=== PATIENT | female | born 1990 | race Hispanic/Latino ===

== ENCOUNTER 2017-08-03 08:28 | Emergency (ER) | payer OTHER, SELFPAY ==
--- NOTE | 2017-08-03 09:11 | EDPHYS ---
Physician Documentation [facility] Name: Sheila Martinez Age: 27 yrs Sex: Female : 1990 Arrival Date: 08/03/2017 Time: 08:33 Bed 18 Private MD: ED Physician Gordon Mathews HPI: 08/03 09:07 This 27 yrs old Female presents to ER via Ambulatory with complaints of Rash. rn 09:07 The patient's rash thought to be caused by Dermatitis. The rash is located on the rn pelvis. The rash can be described as confluent, macular. Onset: The symptoms/episode began/occurred 3 week(s) ago. Severity of symptoms: At their worst the symptoms were mild in the emergency department the symptoms are unchanged. The patient has experienced similar episodes in the past. 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 - Social history:: Smoking status: Patient/guardian denies using tobacco. - Ebola Screening: : Patient negative for fever greater than or equal to 101.5 degrees Fahrenheit, and additional compatible Ebola Virus Disease symptoms Patient denies exposure to infectious person Patient denies travel to an Ebola-affected area in the 21 days before illness onset. - Family history:: not pertinent. - Hospitalizations: : No recent hospitalization is reported. ROS: 09:07 Constitutional: Negative for fever, chills, and weight loss, Abdomen/GI: Negative for rn abdominal pain, nausea, vomiting, diarrhea, and constipation, Skin: + rash to groin Exam: 09:07 Constitutional: This is a well developed, well nourished patient who is awake, alert, rn and in no acute distress. Skin: Warm, dry with normal turgor. + hyperpigmented rash to bilateral groin, few pustules at bases of hair, no abscess Vital Signs: 08:47 BP 115 / 49; Pulse 75; Resp 16; Temp 99.0(O); Pulse Ox 100% ; Weight 81.65 kg; Height 5 [facility] ft. 0 in. (152.40 cm); 08:47 Body Mass Index 35.15 (81.65 kg, 152.40 cm) [facility] MDM: 08:55 Patient medically screened. rn 09:07 Differential diagnosis: fungal infection, folliculitis. Data reviewed: vital signs, rn nurses notes, and as a result, I will discharge patient. Counseling: I had a detailed discussion with the patient and/or guardian regarding: the historical points, exam findings, and any diagnostic results supporting the discharge/admit diagnosis, the need for outpatient follow up, to return to the emergency department if symptoms worsen or persist or if there are any questions or concerns that arise at home. Special discussion: I discussed with the patient/guardian in detail that at this point there is no indication for admission to the hospital. It is understood, however, that if the symptoms persist or worsen the patient needs to return immediately for re-evaluation. Administered Medications: No medications were administered Disposition: 08/03/17 09:10 Discharged to Home. Impression: Tinea cruris, Folliculitis. - Condition is Stable. - Discharge Instructions: Jock Itch, Folliculitis. - Prescriptions for Bactrim DS 800- 160 mg Oral Tablet - take 1 tablet by ORAL route every 12 hours for 10 days; 20 tablet. Nystatin- Triamcinolone 100,000-0.1 unit/gram-% Topical Ointment - apply 1 application by TOPICAL route 2 times per day; 1 tube. - Medication Reconciliation Form, Thank You Letter, Antibiotic Education, Prescription Opioid Use form. - Follow up: Private Physician; When: As needed; Reason: Recheck today's complaints, Re-evaluation by your physician. - Problem is new. - Symptoms have improved. Signatures: Gordon Mathews MD MD rn Baxter, Heather, RN RN Corrections: (The following items were deleted from the chart) 09:22 09:10 08/03/2017 09:10 Discharged to Home. Impression: Tinea cruris; Folliculitis. hb Condition is Stable. Forms are Medication Reconciliation Form, Thank You Letter, Antibiotic Education, Prescription Opioid Use. Follow up: Private Physician; When: As needed; Reason: Recheck today's complaints, Re-evaluation by your physician. Problem is new. Symptoms have improved. rn
--- NOTE | 2017-08-03 09:11 | ER ---
Nurse's Notes [facility] Name: Sheila Martinez Age: 27 yrs Sex: Female : 1990 Arrival Date: 08/03/2017 Time: 08:33 Bed 18 Private MD: Diagnosis: Tinea cruris;Folliculitis Presentation: 08/03 08:52 Presenting complaint: Patient states: Pain, itching, burning, and abscess on groin x 2 hb days. Denies abdominal pain/discharge/ fever/recent sexual activity. Transition of care: patient was not received from another setting of care. Onset of symptoms was August 02, 2017. Risk Assessment: Do you want to hurt yourself or someone else? Patient reports no desire to harm self or others. Initial Sepsis Screen: Does the patient meet any 2 criteria? No. Patient's initial sepsis screen is negative. Does the patient have a suspected source of infection? No. Patient's initial sepsis screen is negative. Care prior to arrival: None. 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 - Social history:: Smoking status: Patient/guardian denies using tobacco. - Ebola Screening: : Patient negative for fever greater than or equal to 101.5 degrees Fahrenheit, and additional compatible Ebola Virus Disease symptoms Patient denies exposure to infectious person Patient denies travel to an Ebola-affected area in the 21 days before illness onset. - Family history:: not pertinent. - Hospitalizations: : No recent hospitalization is reported. Screenin:55 Abuse screen: Denies threats or abuse. Denies injuries from another. Nutritional hb screening: No deficits noted. Tuberculosis screening: No symptoms or risk factors identified. Fall Risk None identified. Assessment: 08:50 General: Appears in no apparent distress. Behavior is calm, cooperative. Pain: Pain hb currently is 1 out of 10 on a pain scale. Neuro: Level of Consciousness is awake, alert, obeys commands, Oriented to person, place, time, situation. Cardiovascular: Capillary refill < 3 seconds Patient's skin is warm and dry. Respiratory: Airway is patent Trachea midline Respiratory effort is even, unlabored, Respiratory pattern is regular, symmetrical. Derm: redness to groin noted. Vital Signs: 08:47 BP 115 / 49; Pulse 75; Resp 16; Temp 99.0(O); Pulse Ox 100% ; Weight 81.65 kg; Height 5 mh5 ft. 0 in. (152.40 cm); 08:47 Body Mass Index 35.15 (81.65 kg, 152.40 cm) 5 ED Course: 08:33 Patient arrived in ED. as 08:49 Patient has correct armband on for positive identification. Placed in gown. Bed in low mh5 position. Call light in reach. Warm blanket given. Pulse ox on. NIBP on. 08:52 Vilma Givens RN is Primary Nurse. hb 08:54 Triage completed. hb 08:55 Gordon Mathews MD is Attending Physician. rn 09:17 Arm band placed on right wrist. jl7 09:21 No provider procedures requiring assistance completed. Patient did not have IV access hb during this emergency room visit. Administered Medications: No medications were administered Outcome: 09:10 Discharge ordered by . rn 09:21 Discharged to home ambulatory. hb 09:21 Condition: stable 09:21 Discharge instructions given to patient, Instructed on discharge instructions, follow up and referral plans. medication usage, Demonstrated understanding of instructions, follow-up care, medications, Prescriptions given X 2. 09:22 Patient left the ED. hb Signatures: Tona Shaw Roman, MD MD rn Baxter, Heather, RN Christine Anton [facility] Javier López RN RN jl7
[2017-08-03 09:34] VITALS: BP 115/49; TEMP 99; O2SAT 100
== END 2017-08-03 09:22 | disposition home or self-care (01) ==
LOC: ER 08:28
DX: B35.6 Tinea cruris (principal); L73.9 Follicular disorder, unspecified
CPT/HCPCS: 99283

== ENCOUNTER 2018-08-13 21:26 | Emergency (ER) | payer SELFPAY ==
--- NOTE | 2018-08-13 22:02 | ER ---
Nurse's Notes [facility] Name: Sheila Martinez Age: 28 yrs Sex: Female : 1990 Arrival Date: 08/13/2018 Time: 21:29 Bed 25 Private MD: Diagnosis: Laceration without foreign body of right index finger without damage to nail Presentation: 08/13 21:43 Presenting complaint: Patient states: I cut my finger at work. Happens less than 30 ca1 minutes ago. It has been bleeding when I cut it. Transition of care: patient was not received from another setting of care. Onset of symptoms was August 13, 2018. Risk Assessment: Do you want to hurt yourself or someone else? Patient reports no desire to harm self or others. Initial Sepsis Screen: Does the patient meet any 2 criteria? No. Patient's initial sepsis screen is negative. Does the patient have a suspected source of infection? No. Patient's initial sepsis screen is negative. Care prior to arrival: None. 21:43 Method Of Arrival: Ambulatory ca1 21:43 Acuity: GISELLE 4 ca1 Triage Assessment: 21:46 General: Appears in no apparent distress. comfortable, Behavior is calm, cooperative, ca1 appropriate for age. Pain: Complains of pain in dorsal aspect of distal phalanx of left index finger Pain currently is 9 out of 10 on a pain scale. Pain began 30 min ago. Musculoskeletal: Circulation, motion, and sensation intact. Capillary refill < 3 seconds, Range of motion: intact in all extremities. Injury Description: Avulsion sustained to dorsal aspect of distal phalanx of left index finger is complete was sustained less than 30 minutes ago. 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 - Social history:: Smoking status: Patient uses tobacco products, denies chronic smoking, but will smoke occasionally. - Ebola Screening: : Patient negative for fever greater than or equal to 101.5 degrees Fahrenheit, and additional compatible Ebola Virus Disease symptoms Patient denies exposure to infectious person Patient denies travel to an Ebola-affected area in the 21 days before illness onset No symptoms or risks identified at this time. Screenin:19 Abuse screen: Denies threats or abuse. Denies injuries from another. Nutritional rv screening: No deficits noted. Tuberculosis screening: No symptoms or risk factors identified. Fall Risk None identified. Assessment: 22:18 General: Appears in no apparent distress. comfortable, Behavior is calm, cooperative. rv Pain: Complains of pain in dorsal aspect of distal phalanx of left index finger. Neuro: Level of Consciousness is awake, alert, obeys commands, Oriented to person, place, time, situation. Cardiovascular: Patient's skin is warm and dry. Respiratory: Airway is patent. GI: No signs and/or symptoms were reported involving the gastrointestinal system. : No signs and/or symptoms were reported regarding the genitourinary system. EENT: No signs and/or symptoms were reported regarding the EENT system. Derm: Wound noted dorsal aspect of distal phalanx of left index finger. Musculoskeletal: No signs and/or symptoms reported regarding the musculoskeletal system. Vital Signs: 21:46 BP 136 / 89; Pulse 72; Resp 16 S; Temp 98.3(O); Pulse Ox 100% on R/A; Weight 79.38 kg; ca1 Height 4 ft. 9 in. (144.78 cm); Pain 9/10; 21:46 Body Mass Index 37.87 (79.38 kg, 144.78 cm) ca1 ED Course: 21:29 Patient arrived in ED. es 21:43 Mayra Ortega, NEEL is Primary Nurse. ca1 21:45 Triage completed. ca1 21:46 Arm band placed on right wrist. ca1 21:56 Rusty Urrutia NP is PHCP. pm1 21:56 Santana Faust MD is Attending Physician. pm1 22:19 Patient has correct armband on for positive identification. Bed in low position. Call rv light in reach. Side rails up X 1. Pulse ox on. NIBP on. 22:20 No provider procedures requiring assistance completed. Patient did not have IV access rv during this emergency room visit. Administered Medications: 22:08 Drug: [place] 5 mg-325 mg 1 tabs Route: PO; rv 22:21 Follow up: Response: Medication administered at discharge. 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 Exp: rv 06/03/2020. Lot #: [id number]. } Route: IM; Site: left deltoid; 22:21 Follow up: Response: Medication administered at discharge. rv Outcome: 22:01 Discharge ordered by . pm1 22:20 Discharged to home ambulatory. rv 22:20 Condition: good 22:20 Discharge instructions given to patient, Instructed on discharge instructions, follow up and referral plans. medication usage, wound care, Demonstrated understanding of instructions, follow-up care, medications, Prescriptions given X 1. 22:20 Patient left the ED. rv Signatures: Kesha Hoyos Patrick, NP DEER FARM WORKER pm1 Ian Malik, RN RN rv Mayra Ortega RN RN ca1
--- NOTE | 2018-08-13 22:02 | EDPHYS ---
Physician Documentation [facility] Name: Sheila Martinez Age: 28 yrs Sex: Female : 1990 Arrival Date: 08/13/2018 Time: 21:29 Bed 25 Private MD: ED Physician Santana Faust HPI: 08/13 22:00 This 28 yrs old Female presents to ER via Ambulatory with complaints of Finger pm1 Injury. 22:00 The patient or guardian reports a laceration. The complaints affect the palmar aspect pm1 of distal phalanx of left index finger. Context: The problem was sustained at work. Onset: The symptoms/episode began/occurred today. Modifying factors: The symptoms are alleviated by pressure to area, the symptoms are aggravated by nothing. Associated signs and symptoms: Pertinent negatives: cyanosis distally, decreased sensation distally, numbness distally, tingling distally. Severity of symptoms: in the emergency department the symptoms have improved. The patient has not recently seen a physician. 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 - Social history:: Smoking status: Patient uses tobacco products, denies chronic smoking, but will smoke occasionally. - Ebola Screening: : Patient negative for fever greater than or equal to 101.5 degrees Fahrenheit, and additional compatible Ebola Virus Disease symptoms Patient denies exposure to infectious person Patient denies travel to an Ebola-affected area in the 21 days before illness onset No symptoms or risks identified at this time. ROS: 22:00 Constitutional: Negative for fever, chills, and weight loss, Eyes: Negative for injury, pm1 pain, redness, and discharge, ENT: Negative for injury, pain, and discharge, Neck: Negative for injury, pain, and swelling, Cardiovascular: Negative for chest pain, palpitations, and edema, Respiratory: Negative for shortness of breath, cough, wheezing, and pleuritic chest pain, Abdomen/GI: Negative for abdominal pain, nausea, vomiting, diarrhea, and constipation, Back: Negative for injury and pain, MS/Extremity: Negative for injury and deformity. 22:00 Neuro: Negative for headache, weakness, numbness, tingling, and seizure. 22:00 Skin: Positive for laceration(s), of the palmar aspect of distal phalanx of left index finger. Exam: 22:00 Constitutional: This is a well developed, well nourished patient who is awake, alert, pm1 and in no acute distress. Head/Face: Normocephalic, atraumatic. Chest/axilla: Normal chest wall appearance and motion. Nontender with no deformity. No lesions are appreciated. Cardiovascular: Regular rate and rhythm with a normal S1 and S2. No gallops, murmurs, or rubs. Normal PMI, no JVD. No pulse deficits. Respiratory: Lungs have equal breath sounds bilaterally, clear to auscultation and percussion. No rales, rhonchi or wheezes noted. No increased work of breathing, no retractions or nasal flaring. Abdomen/GI: Soft, non-tender, with normal bowel sounds. No distension or tympany. No guarding or rebound. No evidence of tenderness throughout. Back: No spinal tenderness. No costovertebral tenderness. Full range of motion. 22:00 Skin: Appearance: normal except for affected area, injury, laceration(s), that can be described as clean, no foreign body, without bleeding, small avulsion to the tip of left 2nd finger. Vital Signs: 21:46 BP 136 / 89; Pulse 72; Resp 16 S; Temp 98.3(O); Pulse Ox 100% on R/A; Weight 79.38 kg; ca1 Height 4 ft. 9 in. (144.78 cm); Pain 9/10; 21:46 Body Mass Index 37.87 (79.38 kg, 144.78 cm) ca1 MDM: 21:56 Patient medically screened. pm1 21:59 Data reviewed: vital signs. Data interpreted: Pulse oximetry: on room air is 100 %. pm1 Interpretation: normal. Counseling: I had a detailed discussion with the patient and/or guardian regarding: the historical points, exam findings, and any diagnostic results supporting the discharge/admit diagnosis, the need for outpatient follow up, to return to the emergency department if symptoms worsen or persist or if there are any questions or concerns that arise at home. 08/13 21:59 Order name: Wound Care; Complete Time: 22:06 pm1 Administered Medications: 22:08 Drug: [place] 5 mg-325 mg 1 tabs Route: PO; rv 22:21 Follow up: Response: Medication administered at discharge. rv 22:08 Drug: Tetanus-Diphtheria Toxoid Adult 0.5 ml {Resin Remover: Parents R People. Exp: rv 06/03/2020. Lot #: [id number]. } Route: IM; Site: left deltoid; 22:21 Follow up: Response: Medication administered at discharge. rv Disposition: 08/14 01:25 Co-signature as Attending Physician, Santana Faust MD. pkl Disposition: 08/13/18 22:01 Discharged to Home. Impression: Laceration without foreign body of right index finger without damage to nail. - Condition is Stable. - Discharge Instructions: Laceration Care, Adult. - Prescriptions for Keflex 500 mg Oral Capsule - take 1 capsule by ORAL route every 12 hours for 10 days; 20 capsule. - Medication Reconciliation Form, Thank You Letter, Antibiotic Education, Prescription Opioid Use, Work release form form. - Follow up: Emergency Department; When: As needed; Reason: Worsening of condition. Follow up: Private Physician; When: 2 - 3 days; Reason: Recheck today's complaints, Continuance of care, Re-evaluation by your physician. - Problem is new. - Symptoms have improved. Signatures: Santana Faust MD MD pkl Rusty Urrutia, [employer] PREPARED FOODS ASSOCIATE pm1 Ian Malik RN RN Mayra Ortega RN RN ca1 Corrections: (The following items were deleted from the chart) 08/13 22:20 22:01 08/13/2018 22:01 Discharged to Home. Impression: Laceration without foreign body rv of right index finger without damage to nail. Condition is Stable. Forms are Medication Reconciliation Form, Thank You Letter, Antibiotic Education, Prescription Opioid Use. Follow up: Emergency Department; When: As needed; Reason: Worsening of condition. Follow up: Private Physician; When: 2 - 3 days; Reason: Recheck today's complaints, Continuance of care, Re-evaluation by your physician. Problem is new. Symptoms have improved. pm1
[2018-08-13] MEDS ORDERED: HYDROCODONE/APAP 5/325 MG TAB ONE (22:19)
[2018-08-13] MEDS ORDERED: TETANUS & DIPHTHERIA TOX,ADULT 0.5 ML VIAL ONE (22:19)
[2018-08-13 22:26] VITALS: BP 136/89; TEMP 98.3; O2SAT 100
== END 2018-08-13 22:20 | disposition home or self-care (01) ==
LOC: ER 21:26
DX: S61.211A Laceration without foreign body of left index finger without damage to nail, initial encounter (principal); W26.0XXA Contact with knife, initial encounter; Y93.89 Activity, other specified; Y92.89 Other specified places as the place of occurrence of the external cause; Y99.8 Other external cause status; Z23 Encounter for immunization
CPT/HCPCS: 90471; 90714; 99283

== ENCOUNTER 2020-07-09 08:41 | Emergency (ER) | payer SELFPAY ==
[2020-07-09 09:29] LABS: Urine Blood 3+ (Negative); Urine Glucose Negative (Negative); Urine Protein 1+ (Negative); Urine pH 6.5 (5.0-7.0)
[2020-07-09 09:34] LABS: Absolute Lymphocytes (CBC) 2.3 K/uL (0.7-4.9); Basophils % 0.5 % (0-1.3); Hematocrit 36.7 % (36.0-45.0); Lymphocytes % 16.7 % (15.3-44.8); MPV 7.8 fL (7.6-11.3); RBC Red Blood Cell Count 4.27 M/uL (3.86-4.86)
[2020-07-09] MEDS ORDERED: FENTANYL CITR 100 MCG/2 ML ONE (09:54)
[2020-07-09] MEDS ORDERED: ONDANSETRON 4 MG/2 ML VIAL ONE (09:54)
[2020-07-09] MEDS ORDERED: KETOROLAC 30 MG/ML INJ ONE (09:54)
[2020-07-09 10:02] LABS: BUN Blood Urea Nitrogen 12 mg/dL (7-18); Bicarbonate 26 mmol/L (21-32); Glucose Level 110 mg/dL (74-106); Potassium 3.1 mmol/L (3.5-5.1); Sodium Level 141 mmol/L (136-145); Uric Acid 3.8 mg/dL (2.6-6.0)
--- NOTE | 2020-07-09 10:21 | RAD REPORT ---
EXAM DESCRIPTION: RAD - Wrist Right 3 View - 07/09/2020 9:54 am CLINICAL HISTORY: Right wrist swelling FINDINGS: No fracture or dislocation is seen. No bone or joint abnormality noted
--- NOTE | 2020-07-09 11:13 | ER ---
Nurse's Notes [facility] Name: Sheila Martinez Age: 30 yrs Sex: Female : 1990 Arrival Date: 07/09/2020 Time: 08:45 Bed 13 Private MD: Diagnosis: Pain in joint;Urinary tract infection, site not specified Presentation: 07/09 08:56 Chief complaint: Patient states: Swelling and pain to bilateral hands/ wrist and ankles ss that began 2 weeks ago. Pt reports that she was seen at [facility] where they prescribed her steroids which do not seem to be helping. Coronavirus screen: Client denies travel out of the [place] in the last 14 days. Ebola Screen: Patient denies exposure to infectious person. Patient denies travel to an Ebola-affected area in the 21 days before illness onset. Initial Sepsis Screen: Does the patient meet any 2 criteria? No. Patient's initial sepsis screen is negative. Does the patient have a suspected source of infection? No. Patient's initial sepsis screen is negative. Risk Assessment: Do you want to hurt yourself or someone else? Patient reports no desire to harm self or others. Onset of symptoms was June 25, 2020. 08:56 Method Of Arrival: Ambulatory ss 08:56 Acuity: GISELLE 3 ss Triage Assessment: 07:40 General: Appears in no apparent distress. Pain: Complains of pain in left leg. tr6 09:24 General: Behavior is. 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 - Social history:: Smoking status: Patient denies any tobacco usage or history of. Screenin:06 Abuse screen: Denies threats or abuse. Nutritional screening: No deficits noted. tw2 Tuberculosis screening: No symptoms or risk factors identified. Fall Risk None identified. Assessment: 09:45 Reassessment: bedside xray. tr6 10:24 Reassessment: Patient appears in no apparent distress at this time. No changes from tw2 previously documented assessment. Patient and/or family updated on plan of care and expected duration. Pain level reassessed. Patient is alert, oriented x 3, equal unlabored respirations, skin warm/dry/pink. pt on personal cell phone at this time, pt is crying, asked if she needed anything pt shook head no. 11:28 Reassessment: Patient appears in no apparent distress at this time. No changes from tw2 previously documented assessment. Patient and/or family updated on plan of care and expected duration. Pain level reassessed. Patient is alert, oriented x 3, equal unlabored respirations, skin warm/dry/pink. Vital Signs: 08:56 BP 129 / 83; Pulse 83; Resp 17; Temp 98.3(TE); Pulse Ox 99% on R/A; Weight 81.65 kg; ss Height 5 ft. 0 in. (152.40 cm); Pain 10/10; 09:45 BP 128 / 86; Pulse 82; Resp 18; Temp 98.3; Pulse Ox 100% ; tr6 10:25 BP 131 / 76; Pulse 89; Resp 17; Pulse Ox 100% on R/A; tw2 11:28 BP 118 / 86; Pulse 81; Resp 17; Pulse Ox 99% on R/A; tw2 08:56 Body Mass Index 35.15 (81.65 kg, 152.40 cm) ED Course: 08:45 Patient arrived in ED. mr 08:58 Triage completed. 08:58 Arm band placed on right wrist. 09:00 Harman Rosales PA is PHCP. [facility] 09:00 Mick Benito MD is Attending Physician. [facility] 09:06 Radhika Vasques, RN is Primary Nurse. tw2 09:07 Bed in low position. Pulse ox on. NIBP on. tw2 09:23 Inserted saline lock: 20 gauge in right antecubital area, using aseptic technique. tr6 ,using aseptic technique. by Abby SHAIKH Blood collected. 09:24 No provider procedures requiring assistance completed. tr6 09:30 Uric Acid Sent. tr6 09:30 CRP Sent. tr6 09:30 ESR Sent. tr6 09:30 BMP Sent. tr6 09:30 CBC with Diff Sent. tr6 09:54 Wrist Right 3 View XRAY In Process Unspecified. EDMS 09:54 Wrist Left (3 View) XRAY In Process Unspecified. EDMS 11:28 IV discontinued, intact, bleeding controlled, No redness/swelling at site. Pressure tr6 dressing applied. Administered Medications: 09: Drug: Ketorolac 30 mg Route: IVP; Site: right antecubital; tr6 11: Follow up: Response: No adverse reaction tw2 : Follow up: Response: No adverse reaction; Pain is decreased tr6 09:43 Drug: fentaNYL (PF) 50 mcg Route: IVP; Site: right antecubital; tr6 : Follow up: Response: No adverse reaction; Pain is decreased; RASS: Alert and Calm (0) tw2 : Follow up: Response: No adverse reaction; Pain is decreased tr6 09:43 Drug: Zofran (Ondansetron) 4 mg Route: IVP; Site: right antecubital; tr6 : Follow up: Response: No adverse reaction tw2 Outcome: 11:13 Discharge ordered by . [facility] 11:28 Discharged to home ambulatory, with friend, friend waiting in car to drive pt home tr6 11: Condition: good 11: Discharge instructions given to patient. 11:40 Patient left the ED. tw2 Addendum: 07/12/2020 07:27 Addendum: Culture Results: Positive urine culture. No further action required. Bacteria e b sensitive to prescribed antibiotic. Signatures: Dispatcher [employer] EDMS Harman Rosales PA PA jmm Rivera, Mary mr GamezAna, RN RN Radhika Payne RN RN tw2 Taylor Monroe Tiffany, RN RN tr6 Corrections: (The following items were deleted from the chart) 07/09 10: 10:29 Reassessment: discharge instructions reviewed with pts mother. pt wheeled out by tr6 mother. tr6 10:30 Discharged to home via wheelchair, with family, tr6 tr6 : 10:30 Condition: good tr6 tr6 10:30 Discharge instructions given to patient, family, mother tr6 tr6
--- NOTE | 2020-07-09 11:13 | EDPHYS ---
Physician Documentation [facility] Name: Sheila Martinez Age: 30 yrs Sex: Female : 1990 Arrival Date: 07/09/2020 Time: 08:45 Bed 13 Private MD: ED Physician Mick Benito HPI: 07/09 09:17 This 30 yrs old Female presents to ER via Ambulatory with complaints of Ankle jmm Swelling, Hand Swelling. 09:17 This is a 30 year old female with no known chronic medical conditions that presents to [facility] the ED with complaints of wrist, ankle pain beginning approx 2 weeks ago. Patient was seen at [place] ED, steroids have not helped. Denies trauma to the areas. . Onset: The symptoms/episode began/occurred gradually, 2 week(s) ago. The patient has not experienced similar symptoms in the past. 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 - Social history:: Smoking status: Patient denies any tobacco usage or history of. ROS: 09:17 Constitutional: Negative for fever, chills, and weight loss, Cardiovascular: Negative jmm for chest pain, palpitations, and edema, Respiratory: Negative for shortness of breath, cough, wheezing, and pleuritic chest pain. 09:17 Hematologic/Lymphatic: Positive for joint pain. 09:17 All other systems are negative. Exam: 09:17 Constitutional: This is a well developed, well nourished patient who is awake, alert, jmm and in no acute distress. Head/Face: atraumatic. Eyes: EOMI, no conjunctival erythema appreciated ENT: Moist Mucus Membranes Neck: Trachea midline, Supple Chest/axilla: Normal chest wall appearance and motion. Cardiovascular: Regular rate and rhythm. No edema appreciated Respiratory: Normal respirations, no respiratory distress appreciated Abdomen/GI: Non distended, soft Back: Normal ROM Skin: General appearance color normal 09:17 Neuro: Awake and alert, normal gait Psych: Behavior is normal, Mood is normal, Patient is cooperative and pleasant 09:17 Musculoskeletal/extremity: swollen joints noted to the carpals bilaterally, pain is mainly referred to the base of the 1st phalanx, no obvious signs of trauma. Painful rom, NVI. Vital Signs: 08:56 BP 129 / 83; Pulse 83; Resp 17; Temp 98.3(TE); Pulse Ox 99% on R/A; Weight 81.65 kg; ss Height 5 ft. 0 in. (152.40 cm); Pain 10/10; 09:45 BP 128 / 86; Pulse 82; Resp 18; Temp 98.3; Pulse Ox 100% ; tr6 10:25 BP 131 / 76; Pulse 89; Resp 17; Pulse Ox 100% on R/A; tw2 11:28 BP 118 / 86; Pulse 81; Resp 17; Pulse Ox 99% on R/A; tw2 08:56 Body Mass Index 35.15 (81.65 kg, 152.40 cm) ss MDM: 09:04 Patient medically screened. [facility] 11:11 Data reviewed: vital signs, nurses notes. Counseling: I had a detailed discussion with andrez the patient and/or guardian regarding: the historical points, exam findings, and any diagnostic results supporting the discharge/admit diagnosis, lab results, radiology results, the need for outpatient follow up, to return to the emergency department if symptoms worsen or persist or if there are any questions or concerns that arise at home. ED course: Most likely autoimmune. Advised to follow up with pcp. Patient will be prescribed oral abx and otherwise given strict return precautions. Patient understood and agrees with the plan of care. . 07/09 09:09 Order name: CBC with Diff; Complete Time: 09:42 [facility] 07/09 09:10 Order name: BMP; Complete Time: 10: [facility] 07/09 09:10 Order name: ESR; Complete Time: 10: [facility] 07/09 09:10 Order name: CRP; Complete Time: 10: [facility] 07/09 09:10 Order name: Uric Acid; Complete Time: : [facility] 07/09 09:28 Order name: Urine Culture [facility] 07/09 09:09 Order name: Wrist Right 3 View XRAY; Complete Time: 10: [facility] 07/09 09:09 Order name: Wrist Left (3 View) XRAY; Complete Time: : [facility] 07/09 09:09 Order name: Saline Lock; Complete Time: 09:19 [facility] 07/09 09:29 Order name: Urine Dipstick-Ancillary; Complete Time: 09:29 [facility] 07/09 09:30 Order name: Urine --Ancillary (enter results); Complete Time: 10:27 07/09 09:10 Order name: Urine Dipstick-Ancillary (obtain specimen); Complete Time: 09:30 [facility] 07/09 09:10 Order name: Urine Test (obtain specimen); Complete Time: 09:30 [facility] 07/09 11:40 Order name: Sling; Complete Time: 11:40 tw2 Administered Medications: 09:43 Drug: Ketorolac 30 mg Route: IVP; Site: right antecubital; tr6 11:29 Follow up: Response: No adverse reaction tw2 11:29 Follow up: Response: No adverse reaction; Pain is decreased tr6 09:43 Drug: fentaNYL (PF) 50 mcg Route: IVP; Site: right antecubital; tr6 11:29 Follow up: Response: No adverse reaction; Pain is decreased; RASS: Alert and Calm (0) tw2 11:29 Follow up: Response: No adverse reaction; Pain is decreased tr6 09:43 Drug: Zofran (Ondansetron) 4 mg Route: IVP; Site: right antecubital; tr6 11:29 Follow up: Response: No adverse reaction tw2 Disposition: 11:11 Chart complete. [facility] 12:05 Co-signature as Attending Physician, Mick Benito MD I agree with the assessment and kdr plan of care. Disposition: 07/09/20 11:13 Discharged to Home. Impression: Pain in joint, Urinary tract infection, site not specified. - Condition is Stable. - Discharge Instructions: Joint Pain. - Prescriptions for Ultram 50 mg Oral Tablet - take 1 tablet by ORAL route every 6 hours As needed; 12 tablet. Bactrim DS 800- 160 mg Oral Tablet - take 1 tablet by ORAL route every 12 hours for 10 days; 20 tablet. - Medication Reconciliation Form, Thank You Letter, Antibiotic Education, Prescription Opioid Use, Work release form form. - Follow up: Private Physician; When: 2 - 3 days; Reason: Recheck today's complaints, Continuance of care, Re-evaluation by your physician. Signatures: Dispatcher [employer] Mick Conn MD MD kdr Harman Rosales PA PA [facility] Ana Gamez, RN RN ss Radhika Vasques RN RN tw2 Stormy Stinson, NEEL RN tr6 Corrections: (The following items were deleted from the chart) 11:14 11:13 07/09/2020 11:13 Discharged to Home. Impression: Pain in joint. Condition is jmm Stable. Forms are Work release form, Medication Reconciliation Form, Thank You Letter, Antibiotic Education, Prescription Opioid Use. Follow up: Private Physician; When: 2 - 3 days; Reason: Recheck today's complaints, Continuance of care, Re-evaluation by your physician. [facility] 11:40 11:14 07/09/2020 11:13 Discharged to Home. Impression: Pain in joint; Urinary tract tw2 infection, site not specified. Condition is Stable. Discharge Instructions: Joint Pain. Prescriptions for Ultram 50 mg Oral Tablet - take 1 tablet by ORAL route every 6 hours As needed; 12 tablet, Bactrim DS 800-160 mg Oral Tablet - take 1 tablet by ORAL route every 12 hours for 10 days; 20 tablet. and Forms are Work release form, Medication Reconciliation Form, Thank You Letter, Antibiotic Education, Prescription Opioid Use. Follow up: Private Physician; When: 2 - 3 days; Reason: Recheck today's complaints, Continuance of care, Re-evaluation by your physician. [facility]
[2020-07-09 11:56] VITALS: TEMP 98.3
[2020-07-09 12:04] VITALS: BP 118/86; O2SAT 99
== END 2020-07-09 11:40 | disposition home or self-care (01) ==
LOC: ER 08:41
DX: M25.532 Pain in left wrist (principal); N39.0 Urinary tract infection, site not specified; Z88.5 Allergy status to narcotic agent
CPT/HCPCS: 36415; 80048; 81003; 81025; 84550; 85025; 85652; 86140; 87077; 87086; 87088; 87186; 96374; 96375; 99284; J2405; J3010

== ENCOUNTER 2020-10-29 17:14 | Emergency (ER) | payer OTHER, SELFPAY ==
--- OUTSIDE RECORDS SUMMARY | 2020-10-29 17:18 | XMS REPORT | Continuity of Care Document ---
:1990 Author Organization [facility] t Address [address] [place] [address] Care Team Providers Name Role Phone Asked, Pcp Primary Care Physician Unavailable Heber Apple Attending Clinician Jc Box MD Attending Clinician Christian CLEMENS Attending Clinician Merary CLEMENS Attending Clinician MD CHRISTIAN Attending Clinician Unavailable CHRISTIAN Admitting Clinician Unavailable MD CHRISTIAN Admitting Clinician Unavailable Problems Condition Condition Condition Status Onset Resolution Last Treating Co mments Source Name Details Category Date Date Treatment Clinician Date Tenosynovi Tenosynovi Disease Active M ethodi tis tis 07-11 00:00: Hospita 00 l Allergies, Adverse Reactions, Alerts Allergy Allergy Status Severity Reaction(s) Onset Inactive Treating Comm ents Source Name Type Date Date Clinician Hydromor Propensi Active Itching Metho di phone ty to 07-12 st adverse 00:00: Hospita reaction 00 l s to drug Morphine Propensi Active Anxiety Metho di ty to 07-10 st adverse 00:00: Hospita reaction 00 l s to drug Tramadol Propensi Active Shortness Of Methodi ty to Breath 07-10 adverse 00:00: Hospita reaction 00 l s to drug Social History Social Habit Start Date Stop Date Quantity Comments Source Sex Assigned At [birth year] [facility] 00:00:00 00:00:00 Smoking Status Start Date Stop Date Source Unknown if ever smoked [facility] Medications Ordered Filled Start Stop Current Ordering Indication Dosage Frequency Signature Comments Components Source Medication Medication Date Date Medication? Clinician ([place]) [place] [address] 50mg Q6H Take 50 mg M ethodi (ULTRAM) 50 07-[address] mg tablet 00:38: 00:00 every 6 Hosp candido 16 :00 (six) l hours as needed for moderate pain .acute pain. acetaminoph No 1{tbl} Q6H Take 1 Methodi en-codeine 07-[address] (TYLENOL 00:00: 04:59 mouth Hospita WITH 00 :00 every 6 l CODEINE #3) (six) 300-30 mg hours as per tablet needed for severe pain for up to 14 days .acute pain. sulfamethox No 1{tbl} Q.5D Take 1 M ethodi azole-trime 07-[address] thoprim 00:00: 04:59 mouth 2 Hospit a (BACTRIM 00 :00 (two) l DS) 800-160 times a mg per day. For tablet 10 days 07/09/20-0 07/19/20 Vital Signs Vital Name Observation Time Observation Value Comments Source Systolic blood 2020-07-12 16:38:32 115 mm[Hg] [facility] Di[facility] blood 2020-07-12 16:38:32 73 mm[Hg] [facility] pressure Heart rate 2020-07-12 16:38:32 77 /min [facility] Body temperature 2020-07-12 16:38:32 37 [facility] Respiratory rate 2020-07-12 16:38:32 18 /min [facility] Oxygen saturation in 2020-07-12 16:38:32 100 /min [facility] Arterial blood by Pulse oximetry Body height 2020-07-11 00:39:00 152.4 cm [facility] Procedures Procedure Date / Time Performing Clinician Source Performed ECG ED PRELIMINARY 2020-07-12 21:55:00 [facility] INTERPRETATION AEROBIC CULTURE 2020-07-11 20:58:00 [facility] Scar GRAM STAIN 2020-07-11 20:58:00 [facility] Scar CRYSTAL ANALYSIS 2020-07-11 20:52:00 [facility] Scar HC COMPLETE BLD COUNT 2020-07-11 08:34:00 [facility] W/AUTO DIFF BASIC METABOLIC PANEL 2020-07-11 08:34:00 [facility] MAGNESIUM LEVEL 2020-07-11 08:34:00 [facility] CREATINE KINASE, TOTAL 2020-07-11 08:34:00 [facility] ([facility]) HEPATITIS ACUTE PANEL 2020-07-11 08:34:00 [facility] ESTIMATED GFR 2020-07-11 08:34:00 [facility] LACTIC ACID LEVEL 2020-07-11 07:00:00 [facility] MRI UPPER EXTREMITY JOINT 2020-07-11 06:30:00 [facility] W WO CONTRAST RIGHT MRI UPPER EXTREMITY W WO 2020-07-11 06:30:00 [facility] CONTRAST RIGHT US DUPLEX VENOUS UPPER 2020-07-11 03:12:40 [facility] EXTREMITY RIGHT BLOOD CULTURE, AEROBIC & 2020-07-11 01:56:00 [facility] ANAEROBIC COVID-19 QUALITATIVE 2020-07-11 01:56:00 [facility] RT-PCR URINE CULTURE 2020-07-11 01:56:00 [facility] HC COMPLETE BLD COUNT 2020-07-11 01:56:00 [facility] W/AUTO DIFF COMPREHENSIVE METABOLIC 2020-07-11 01:56:00 [facility] PANEL SEDIMENTATION RATE 2020-07-11 01:56:00 [facility] C-REACTIVE PROTEIN 2020-07-11 01:56:00 [facility] LACTIC ACID LEVEL 2020-07-11 01:56:00 [facility] HCG QUALITATIVE, URINE 2020-07-11 01:56:00 [facility] SCREEN URINALYSIS SCREEN AND 2020-07-11 01:56:00 [facility] MICROSCOPY, WITH REFLEX TO CULTURE ESTIMATED GFR 2020-07-11 01:56:00 [facility] ECG 12-LEAD 2020-07-11 00:04:49 [facility] Plan of Care Planned Activity Planned Date Details Comments Source Future Scheduled Test COVID-19 VACCINE (1) [facility] [code = COVID-19 VACCINE (1)] Future Scheduled Test Screening for [facility] malignant neoplasm of cervix (procedure) [code = 794555968] Future Scheduled Test INFLUENZA VACCINE [facility] [code = INFLUENZA VACCINE] Encounters Start End Encounter Admission Attending Care Care Encounter Source Date/Time Date/Time Type Type Clinicians Facility Department ID 2020-10-17 2020-10-17 Telephone ANTONINA Campbell [id number] 00:00:00 00:00:00 Keya Buck [employer]G 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 [id number] [facility] [id number] MATERNAL [id number] & CHILD [address] [place] [address] 2020-07-10 2020-07-12 Emergency [facility] [id number] Methodi 19:40:00 16:55:00 [place] [id number] [address] 3.430.2.7 Hospita .[id number] l .8 2020-07-10 2020-07-12 [facility] [id number] [place] [address] 00:00:00 00:00:[address] 2020-07-11 2020-07-11 Travel 1.2.840.1 [id number] Methodi 00:00:00 00:00:[id number] 3.430.2.7 0.2.7.3.698 Ho spita .[id number] 084.8 l .8 Results Test Description Test Time Test Comments Results Result Sourc e Comments ECG ED Preliminary [facility] Interpretation - 1 07/27/2020 Bill [facility]ital Not an Order 21:55:00 8:10 PMECG ED Preliminary Interpretation - Not an OrderPerformed by: Kenney Box MDAuthorized by: Kenney Box MD ECG reviewed by ED Physician in the absence of a tripper: yes Interpretation: Interpretation: normal Rate: ECG rate: 93 ECG rate assessment: normal Rhythm: Rhythm: sinus rhythm QRS: QRS axis: Normal QRS intervals: NormalST segments: ST segments: Normal ECG 12 lead 2020-07-11 16:13:18 Test Item Value Reference Range Interpretation Comme nts Ventricular rate (test code = 253) Atrial rate (test code = 255) QRSD interval (test code = 260) QT interval (test code = 264) QTC interval (test code = 265) QRS axis 1 (test code = 268) T wave axis (test code = 270) EKG impression (test code = 273) Normal sinus rhythm-T wave abnorma lity, consider inferior ischemia-Abnormal ECG-No previous ECGs available- [facility] duplex venous upper [id number] 13:34:00 [facility] Upper Extremity Venous Report [address] [place] [address] Pat.Name: YUSUF LOID: [id number] .Date: 07/10/2020 Refer.MD: PHYSICIAN, EMERGENCY, Exam Time: 9:18:00 PM Study Type:UE Venous Height: 60in Age: 3 1990,30Y Sex: FEMALE Sonogrphr: CHINEDU Bolaños Pat. Stat.:Inpatient Room: ED17 Tape Vol: CM, CPT - 4: 25466 Echo Event ID:[id number] Order ID: [id number] Reason for Study:Right arm swelling.Procedures: B-flow imaging, Colorflow, Grayscale/2D, Pulsed waveDoppler SUMMARY: DUPLEX SCAN OBSERVATIONS Right LeftIJ Normal Subclavian Normal NormalAxillary Normal Brachial Normal Basilic Normal Cephalic Normal RIGHT: There is normal compressibility and no evidence of echogenicmaterial noted within the lumen of the visualized veins. Colorflow andDoppler signals are normal. LEFT: There is normal compressibility and no evidence of echogenicmaterial noted within the lumen of thesubclavian vein. Colorflow andDoppler signals are normal. PRELIMINARY FINDINGS1. No evidence of venous thrombosis noted in the visualized veins.results given to ED physician @ 1PHYSICIAN INTERPRETATION Venous examination of the right upper extremity and neck demonstratedno evidence of venous thrombosis. FINDINGS: Signed 07/11/2020 08:34 Michela Hope MD, [facility], Rad[facility] Results In - 07/11/2020 8:35 AMCDT [facility] Upper Extremity Venous Report [address] [address], [place] [address] Pat.Name:YUSUF LO Pat.ID: [id number] .Date: 07/10/2020 Refer.MD: PHYSICIAN, EMERGENCY, [place] Time: 9:18:00 PM Study Type:UE Venous Height: 60in Age: 3 1990,30Y Sex: FEMALE Sonogrphr: CHINEDU Bolaños. Stat.:Inpatient Room: ED17 Tape Vol: CM, CPT - 4: 76241 Echo Event ID:[id number] Order ID: [id number] Reason for Study:Right arm swelling.Procedures: B-flow imaging, Colorflow, Grayscale/2D, Pulsed waveDoppler SUMMARY:------- DUPLEX SCAN OBSERVATIONS Right LeftIJ Normal Subclavian Normal NormalAxillary Normal Brachial Normal Basilic Normal Cephalic Normal RIGHT: There is normal compressibility and no evidence of echogenicmaterial noted within the lumen of the visualized veins. Colorflow andDoppler signals are normal. LEFT: There is normal compressibility and no evidence of echogenicmaterial noted within the lumen of the subclavian vein. Colorflow andDoppler signals are normal. PRELIMINARY FINDINGS1. No evidence of venous thrombosis noted in the visualized veins.results given to ED physician @ 07/10/2020HYSICIAN INTERPRETATION Venous examinationof the right upper extremity and neck demonstratedno evidence of venous thrombosis. FINDINGS: Signed 07/11/2020 08:34 Michela Hope MD, [facility] Upper Extremity Joint W Wo Contrast [id number] 11:59:27EXAMINATION: MRI UPPER EXTREMITY JOINT W WO CONTRAST RIGHT CLINICAL HISTORY: r wrist inflammation tenosynovitis wendy of thumb extend to whole thumb and to mid forearm TECHNIQUE: Multiplanar, multis equence MR imaging of the right wrist was performed with COMPARISON: None IMPRESSION:1.Mild sprainor stress related change of the dorsal extrinsic ligaments. The volar extrinsic ligaments are well-maintained. Mild sprain of the volar component of the scapholunate ligament. Partial tearing of the membranous portion. The dorsal component appears intact, though there is a tiny overlying ganglion cyst, which may indicate an occult partial tear. 2.Degeneration of the lunotriquetral ligament mostly thedorsal component, with a small ganglion cyst extending medially and palmar, series 7 images 8 and 9.Measures 6 mm. 3.Central disc of TFC intact. Degeneration of the proximal and distal lamina. A partial tear of the ulnar attachment of the volar radioulnar ligament with an adjacent 4 mm ganglion cyst.Degeneration of the dorsal radioulnar ligament at the ulnar attachment also. ECU tendon is well-maintained. 4.Fluid and heterogeneous signal distending the second through fourth extensor compartment sheath, and to a lesser degree, the first extensor compartment, indicative of moderate tenosynovitis. Mild signal abnormality of the EPL tendon indicating mild tendinopathy. Remaining visualized muscle groups and tendons are well- maintained. Visualized portions of the median and ulnar nerves are well-main tained 5.The visualized bones are well-maintained. No joint effusion. SUMMARY:Moderate cellulitis and second through fourth extensor compartment tenosynovitis. Mild first extensor compartment tenosynovitis. Mild EPL tendinopathy. No evidence of osteomyelitis or joint effusion. Incidental findings as detailed above [id number] Interface, Radiology Results Incoming - 07/11/2020 7:02 AM CDT EXAMINATION: MRI UPPER EXTREMITY JOINT W WO CONTRAST RIGHTCLINICAL HISTORY: r wrist inflammation tenosynovitis wendy of thumb extend to whole thumb and to mid forearmTECHNIQUE: Multiplanar, multisequence MR imaging of the right wrist was performed withCOMPARISON: NoneIMPRESSION:1.Mild sprain or stress related change of the dorsal extrinsic ligaments. The volar extrinsic ligaments are well-maintained. Mild sprain of the volar component of the s capholunate ligament. Partial tearing of the membranous portion. The dorsal component appears intact, though there is a tiny overlying ganglion cyst, which may indicate an occult partial tear.2.Degeneration of the lunotriquetral ligament mostly the dorsal component, with a small ganglion cyst extending medially and palmar, series 7 images 8 and 9. Measures 6 mm.3.Central disc of TFC intact. Degeneration of the proximal and distal lamina. A partial tear of the ulnar attachment of the volar radioulnarligament with an adjacent 4 mm ganglion cyst. Degeneration of the dorsal radioulnar ligament at the ulnar attachment also. ECU tendon is well-maintained.4.Fluid and heterogeneous signal distending the second through fourth extensor compartment sheath, and to a lesser degree, the first extensor compartment, indicative of moderate tenosynovitis. Mild signal abnormality of the EPL tendon indicating mild tendinopathy. Remaining visualized muscle groups and tendons are well- maintained. Visualized portions of the median and ulnar nerves are well- maintained5.The visualized bones are well-maintained. No joint effusion.SUMMARY:Moderate cellulitis and second through fourth extensor compartment tenosynovitis. Mild first extensor compartment tenosynovitis. Mild EPL tendinopathy.No evidence of osteomyelitis or joint effusion.Incidental findings as detailed [id number] Upper Extremity W Wo Contrast [id number] 11:52:03EXAMINATION: MRI UPPER EXTREMITY W WO CONTRAST RIGHT CLINICAL HISTORY: Pain and/or swelling TECHNIQUE: Multiplanar, multisequence MR imaging examination of right hand, prior to and following gadolinium IV contrast.. COMPARISON: None. IMPRESSION:1.Moderate subcutaneous edema throughout the dorsum ofthe hand. No discrete abscess identified. 2.Fluid within the sheath of the second and third extensorcompartment indicative of mild to moderate synovitis. Mild extensor pollicis longus tendinopathy is also present. 3.The visualized bones show no evidence of osteomyelitis, well- maintained. No joint effusion. SUMMARY:Cellulitis without evidence of abscess or osteomyelitis. No joint effusion. EPL tenosynovitis and tendinopathy, and moderate second extensor compartment tenosynovitis [id number] Interface, Radiology Results 07/11/2020 6:55 AM CDT EXAMINATION: MRI UPPER EXTREMITY W WO CONTRAST RIGHTCLINICAL HISTORY: Pain and/or swellingTECHNIQUE: Multiplanar, multisequence MR imaging examination of right hand, prior to and following gadolinium IV contrast..COMPARISON: None.IMPRESSION:1.Moderate subcutaneous edema throughout the dorsum of the hand. No discrete abscess identified.2.Fluid within the sheath of the second andthird extensor compartment indicative of mild to moderate synovitis. Mild extensor pollicis longus tendinopathy is also present.3.The visualized bones show no evidence of osteomyelitis, well-maintained. No joint effusion.SUMMARY:Cellulitis without evidence of abscess or osteomyelitis. No joint effusion.EPL tenosynovitis and tendinopathy, and moderate second extensor compartment [id number] FOREARM W WO CONTRAST [id number] 11:47:26EXAMINATION: MRI FOREARM W WO CONTRAST RIGHT CLINICAL HISTORY: Pain and or swelling TECHNIQUE: Multiplanar, multisequence MR imaging examination of right forearm, prior to and following gadolinium IVcontrast.. COMPARISON: None. IMPRESSION:1.Mild to moderate subcutaneous edema in the forearm most previous distally. No focal fluid collection identified. 2.Mild myoedema in the extensor compartments d istally, and fluid distending the tendon sheaths of the second and fourth extensor compartments indicative of mild to moderate tenosynovitis. 3.Mild osteoedema in the proximal radius from the neck through the proximal one third of the shaft. No osteolysis is identified. The findings indicate osteitis. Remaining visualized bones appear well-maintained. SUMMARY:Second and fourth extensor compartment mild to moderate tenosynovitis. Mild myoedema and subcutaneous edema distally without a discrete abscess. Cortical osteitis in the proximal radius. Follow-up to ensure resolution is recommended [id number] Interface, Radiology Results - 07/11/2020 6:50 AM CDT EXAMINATION: MRI FOREARM W WO CONTRAST RIGHTCLINICAL HISTORY: Pain and or swellingTECHNIQUE: Multiplanar, multisequence MR imaging examination of right forearm, prior toand following gadolinium IV contrast..COMPARISON: None.IMPRESSION:1.Mild to moderate subcutaneous edema in the forearm most previous distally. No focal fluid collection identified.2.Mild myoedema in the extensor compartments distally, and fluid distending the tendon sheaths of the second and fourth extensor compartments indicative of mild to moderate tenosynovitis.3.Mild osteoedema in the proximal radius from the neck through the proximal one third of the shaft. No osteolysis is identified. The findings indicate osteitis. Remaining visualized bones appear well-maintained.SUMMARY:Second and fourth extensor compartment mild to moderate tenosynovitis. Mild myoedema and subcutaneous edema distally without a discrete abscess.Cortical osteitis in the proximal radius. Follow-up to ensure resolution is [id number] SARS-CoV-2 (COVID-19) RNA [Presence] in Respiratory specimen by LEIGHANN with probe [id number] 03:47:26 Test Item Value Reference Range Interpretation Comments SARS-CoV-2 (COVID-19) RNA Not detected Not-Detected [Presence] in Respiratory specimen by LEIGHANN with probe detection (test code = 28929-5) Whether patient is employed in a healthcare setting (test code = 86664-7) Whether the patient has symptoms related to condition of interest (test code = 89019-3) Patient was hospitalized because of this condition (test code = 31145-9) Whether the patient was admitted to intensive care unit (ICU) for condition of interest (test code = 21831-9) Whether patient resides in a congregate care setting (test code = 82881-0) Urine [id number] 02:50:54 Test Item Value Reference Range Interpretation Comments Urine culture (test code = SEE COMMENT [id number]) [facility]
--- NOTE | 2020-10-29 19:55 | RAD REPORT ---
EXAM DESCRIPTION: US - Transvaginal OB - 10/29/2020 7:46 pm CLINICAL HISTORY: ABD CRAMPING, COMPARISON: No relevant comparison TECHNIQUE: Limited OB ultrasound study performed. FINDINGS: Single intrauterine gestation identified. Gestational sac is normal in appearance. Heart r ate was 138 BPM. Femur length corresponds to 16 week 3 day age. No gross anatomic abnormality seen on limited by completion. Amniotic fluid volume is normal. Placenta is mostly right lateral in position . Internal os is closed. Both ovaries are identified and unremarkable. No adnexal abnormality. Normal blood flow seen in the s troma. IMPRESSION: Limited OB assessment demonstrates 16 week 3 day IUP with heart rate 130 BPM. No gross a natomic abnormality seen. Placenta is unremarkable. No amniotic fluid volume abnormality. Internal os of the cervix is closed. No adnexal abnormalities.
[2020-10-29 20:11] LABS: Urine Blood Negative (Negative); Urine Glucose Negative (Negative); Urine Protein Negative (Negative); Urine Specific Gravity 1.025 (1.005-1.030); Urine pH 6.5 (5.0-7.0)
[2020-10-29] MEDS ORDERED: ACETAMINOPHEN 500 MG TAB ONE (20:44)
[2020-10-29] MEDS ORDERED: NA CHLORIDE 0.9% 1,000 ML ONE (20:44)
[2020-10-29 20:46] LABS: Absolute Lymphocytes (CBC) 1.8 K/uL (0.7-4.9); Basophils % 0.3 % (0-1.3); Hematocrit 35.6 % (36.0-45.0); Lymphocytes % 18.2 % (15.3-44.8); MPV 7.8 fL (7.6-11.3); RBC Red Blood Cell Count 4.07 M/uL (3.86-4.86)
[2020-10-29 20:55] LABS: Urine Bacteria >50 /HPF (<20)
[2020-10-29 20:55] LABS: Urine Specific Gravity/Preg 1.025 (1.005-1.030)
[2020-10-29 20:56] LABS: Calcium Oxalate Crystals- Ur FEW (NONE SEEN); Urine RBC <5 /HPF (NONE SEEN); Urine Urothelial Cells <5 /HPF (NONE SEEN)
[2020-10-29 21:36] LABS: BUN Blood Urea Nitrogen 6 mg/dL (7-18); Bicarbonate 22 mmol/L (21-32); Glucose Level 93 mg/dL (74-106); HCG, Quantitative 16073 mIU/mL (1-3); Potassium 3.4 mmol/L (3.5-5.1); Sodium Level 139 mmol/L (136-145)
--- NOTE | 2020-10-29 21:39 | ER ---
Nurse's Notes [facility] Name: Sheila Martinez Age: 30 yrs Sex: Female : 1990 Arrival Date: 10/29/2020 Time: 17:18 Bed DIS8 Private MD: Diagnosis: Threatened ;16 weeks gestation of Presentation: 10/29 18:21 Chief complaint: Patient states: Vaginal spotting that began this morning. Pt reports ss that she has been having cramping. Coronavirus screen: Client denies travel out of the [place] in the last 14 days. Ebola Screen: Patient denies exposure to infectious person. Patient denies travel to an Ebola-affected area in the 21 days before illness onset. Initial Sepsis Screen: Does the patient meet any 2 criteria? No. Patient's initial sepsis screen is negative. Does the patient have a suspected source of infection? No. Patient's initial sepsis screen is negative. Risk Assessment: Do you want to hurt yourself or someone else? Patient reports no desire to harm self or others. Onset of symptoms was October 27, 2020. 18:21 Method Of Arrival: Ambulatory ss 18:21 Acuity: GISELLE 3 ss Historical: - Allergies: 18:23 Morphine; anxiety; ss 18:23 Tramadol HCl; ss - Immunization history:: Client reports having NOT received the Covid vaccine. - Social history:: Smoking status: Patient denies any tobacco usage or history of. Screenin:44 Abuse screen: Denies threats or abuse. Nutritional screening: No deficits noted. em Tuberculosis screening: No symptoms or risk factors identified. Fall Risk None identified. Assessment: 21:48 General: Appears in no apparent distress. comfortable, Behavior is calm, cooperative, em appropriate for age. Pain: Complains of pain in pelvis Quality of pain is described as crampy. Neuro: Level of Consciousness is awake, alert, obeys commands, Oriented to person, place, time, situation, Appropriate for age. Cardiovascular: Capillary refill < 3 seconds Patient's skin is warm and dry. Respiratory: Airway is patent Respiratory effort is even, unlabored, Respiratory pattern is regular, symmetrical. : Reports vaginal bleeding that is spotty. Derm: Skin is intact, is healthy with good turgor, Skin is pink, warm \T\ dry. Musculoskeletal: Capillary refill < 3 seconds, Range of motion: intact in all extremities. Vital Signs: 18:21 Resp 18; Weight 81.65 kg; Height 5 ft. 0 in. (152.40 cm); Pain 7/10; ss 18:23 BP 127 / 97; Pulse 100; Temp 99.3(O); Pulse Ox 99% ; ss 18:21 Body Mass Index 35.15 (81.65 kg, 152.40 cm) ED Course: 17:18 Patient arrived in ED. mr 18:22 Triage completed. ss 18:23 Arm band placed on right wrist. ss 19:46 US Transvaginal Ob In Process Unspecified. EDMS 20:04 Genesis Cardona FNP-C is PHCP. kb 20:04 Laureano Hernandez is Attending Physician. kb 20:15 Urine collected: clean catch specimen, cloudy. [facility] 20:23 Initial lab(s) drawn, by me, sent to lab. Inserted saline lock: 20 gauge in left [facility] antecubital area, using aseptic technique. Blood collected. 20:30 Urine Microscopic Only Sent. [facility] 21:44 Victorino King, RN is Primary Nurse. em 21:44 Patient has correct armband on for positive identification. em 21:44 No provider procedures requiring assistance completed. IV discontinued, intact, em bleeding controlled, No redness/swelling at site. Pressure dressing applied. Administered Medications: 20:34 Drug: Tylenol 1000 mg Route: PO; iw 21:49 Follow up: Response: No adverse reaction em 20:34 Drug: NS 0.9% 1000 ml Route: IV; Rate: 1000 ml; Site: left antecubital; iw 21:49 Follow up: IV Status: Completed infusion; IV Intake: 1000ml em Intake: 21:49 IV: 1000ml; Total: 1000ml. em Outcome: 21:39 Discharge ordered by . kb 21:49 Patient left the ED. em Addendum: 11/04/2020 15:01 Addendum: Culture Results: Positive urine culture. Patient was not prescribed s s antibiotics at discharge. Report given to NICOLE for further evaluation and then to strategic sourcing consultant for follow up with patient. Phone call Attempt #1 Attempted to call patient. No answer. Recommended by Dr. Gonzalez to call in Macrobid if patient is experiencing symptoms. Signatures: Dispatcher [employer] EDMS Genesis Cardona FNP-C DRYWALL SPRAYER-Ckb Soham Bella mr King, Victorino, RN Haylee Singh, RN Ana Little, RN RN Desire Ocampo [facility]
--- NOTE | 2020-10-29 21:39 | EDPHYS ---
Physician Documentation [facility] Name: Sheila Martinez Age: 30 yrs Sex: Female : 1990 Arrival Date: 10/29/2020 Time: 17:18 Bed DIS8 Private MD: ED Physician Laureano Hernandez HPI: 10/29 23:29 This 30 yrs old Female presents to ER via Ambulatory with complaints of kb Vaginal Bleeding, 15 wks . 23:29 The patient has not experienced similar symptoms in the past. The patient has not kb recently seen a physician. 23:29 The patient presents to the emergency department with abdominal pain, of the suprapubic kb area, described as crampy, vaginal bleeding, described as spotting. The estimated gestational age is 16 weeks. course: care: at a clinic. Previous pregnancies: in previous pregnancies patient has had. Associated signs and symptoms: Pertinent positives: abdominal pain, vaginal bleeding. Pt reports suprapubic cramping that started over a month ago. Has spoken to OB about this and was told it was normal changes due to growing baby. Patient reports she started having spotting today which prompted her visit to the ER.. Historical: - Allergies: 18:23 Morphine; anxiety; ss 18:23 Tramadol HCl; ss - Immunization history:: Client reports having NOT received the Covid vaccine. - Social history:: Smoking status: Patient denies any tobacco usage or history of. ROS: 23:29 Constitutional: Negative for fever, chills, and weight loss. kb 23:29 Abdomen/GI: Positive for abdominal cramps. 23:29 : Positive for vaginal bleeding. 23:29 All other systems are negative. Exam: 23:29 Constitutional: This is a well developed, well nourished patient who is awake, alert, kb and in no acute distress. Head/Face: Normocephalic, atraumatic. ENT: Moist Mucous membranes Respiratory: Respirations even and unlabored. No increased work of breathing, no retractions or nasal flaring. Abdomen/GI: Soft, non-tender. No distention Skin: Warm, dry with normal turgor. Normal color. MS/ Extremity: Pulses equal, no cyanosis. Neurovascular intact. Full, normal range of motion. Neuro: Awake and alert, GCS 15, oriented to person, place, time, and situation. Moves all extremities. Normal gait. Psych: Awake, alert, with orientation to person, place and time. Behavior, mood, and affect are within normal limits. Vital Signs: 18:21 Resp 18; Weight 81.65 kg; Height 5 ft. 0 in. (152.40 cm); Pain 7/10; ss 18:23 BP 127 / 97; Pulse 100; Temp 99.3(O); Pulse Ox 99% ; ss 18:21 Body Mass Index 35.15 (81.65 kg, 152.40 cm) ss MDM: 20:06 Patient medically screened. kb 23:28 Data reviewed: vital signs, nurses notes. Data interpreted: Pulse oximetry: on room air kb is 99 %. Interpretation: normal. Counseling: I had a detailed discussion with the patient and/or guardian regarding: the historical points, exam findings, and any diagnostic results supporting the discharge/admit diagnosis, lab results, radiology results, the need for outpatient follow up, an OB/Gyne specialist, to return to the emergency department if symptoms worsen or persist or if there are any questions or concerns that arise at home. 10/29 18:37 Order name: Abo/rh Typing; Complete Time: 21:18 kb 10/29 18:37 Order name: Basic Metabolic Panel; Complete Time: 21:38 kb 10/29 18:37 Order name: CBC with Diff; Complete Time: 20:59 kb 10/29 18:37 Order name: Quantitative Hcg; Complete Time: 21:38 kb 10/29 20:11 Order name: Urine Dipstick-Ancillary EDMS 10/29 20:13 Order name: Urine Microscopic Only dh3 10/29 18:37 Order name: IV Saline Lock; Complete Time: 20:29 kb 10/29 18:37 Order name: Labs collected and sent; Complete Time: 20:29 kb 10/29 18:55 Order name: US Transvaginal Ob; Complete Time: 20:04 kb 10/29 20:13 Order name: Urine Microscopic Only; Complete Time: 20:59 EDMS 10/29 20:17 Order name: Urine --Ancillary (enter results); Complete Time: 20:59 tt3 10/29 20:57 Order name: Urine Culture EDMS 10/29 18:37 Order name: NPO; Complete Time: 20:29 kb 10/29 18:37 Order name: Urine Dipstick-Ancillary (obtain specimen); Complete Time: 20:12 kb 10/29 18:37 Order name: Urine Test (obtain specimen); Complete Time: 20:12 kb Administered Medications: 20:34 Drug: Tylenol 1000 mg Route: PO; iw 21:49 Follow up: Response: No adverse reaction em 20:34 Drug: NS 0.9% 1000 ml Route: IV; Rate: 1000 ml; Site: left antecubital; iw 21:49 Follow up: IV Status: Completed infusion; IV Intake: 1000ml em Disposition: 10/30 07:14 Co-signature as Attending Physician, Laureano Hernandez I agree with the assessment and plan sp3 of care. Disposition Summary: 10/29/20 21:39 Discharge Ordered Location: Home kb Condition: Stable kb Diagnosis - Threatened kb - 16 weeks gestation of kb Followup: kb - With: Emergency Department - When: As needed - Reason: Worsening of condition Followup: kb - With: Private Physician - When: 2 - 3 days - Reason: Recheck today's complaints, Continuance of care, Re-evaluation by your physician Discharge Instructions: - Discharge Summary Sheet kb - Threatened Miscarriage, [id number] kb Forms: - Medication Reconciliation Form kb - Thank You Letter kb - Antibiotic Education kb - Prescription Opioid Use kb Signatures: Dispatcher [employer] Genesis Torrez, NURSING INFORMATICS ANALYST-C NURSING INFORMATICS ANALYST-Haylee Ding, RN Ana Little RN Laureano Hernandez Edgar RN em
[2020-10-29 21:58] VITALS: BP 127/97; TEMP 99.3; O2SAT 99
== END 2020-10-29 21:49 | disposition home or self-care (01) ==
LOC: ER 17:14
DX: O20.0 Threatened abortion (principal); Z3A.16 16 weeks gestation of pregnancy
CPT/HCPCS: 87088; 85025; 87086; 80048; 36415; 86900; 81025; 86901; 84702; 87077; 87186; 76817; 96360; 99284; J7030; 81003; 81015